=== PATIENT | female | born 2000 | race Two or more races ===

== ENCOUNTER → 2022-10-21 | Emergency (ER) | payer OTHER ==
[~2022-10-21] VITALS: Ht 167.6 cm; Wt 68.0 kg
[~2022-10-21] MED LIST: CELEBREX200MG PO; MEDROLPACK PO; METAXALONE800 MG PO
== END | disposition home or self-care (01) ==
LOC: ER 16:42 → EMR PED 16:42 → ER 19:56
DX: S39.012A Strain of muscle, fascia and tendon of lower back, initial encounter (principal)